=== PATIENT | male | born 1980 | race Caucasian/White ===

== ENCOUNTER 2020-04-09 11:44 | Emergency (ER) | payer OTHER, SELFPAY ==
[2020-04-09 11:49] VITALS: BP 108/91; PULSE 80; RESP 20; TEMP 36.9; O2SAT 100
--- NOTE | 2020-04-09 11:49 | ED.GENADULT ---
HPI - General Adult General Chief complaint: Back Pain/Injury Stated complaint: back pain going to right arm Time Seen by Provider: 04/09/20 11:49 Source: patient Mode of arrival: ambulatory Limitations: no limitations History of Present Illness HPI narrative: 39-year-old male patient presents to the [facility] with complaints of right upper back pain that radiates to the shoulder. Patient states he has had this ongoing for the last couple of years but is now has never seen a primary doctor for this. Patient states that this time it started about 3 days ago and is gotten increasingly worse with some numbness and tingling down the right arm. Patient denies any injury that he can remember. Patient denies any numbness or tingling to the lower extremities. Denies any recent falls. Denies any loss of control of bowel or bladder. Patient states he did take some Advil for it yesterday but denies take anything for today. Related Data Allergies Allergy/AdvReac Type Severity Reaction Status Date / Time No Known Allergies Allergy Mild Unverified 01/28/14 15:27 Review of Systems Review of Systems: Narrative: CONSTITUTIONAL: Denies fever, chills, or sweats. EYES: Denies visual changes, redness, or discharge. ENT: Denies rhinorrhea, congestion, sore throat, or otalgia. CARDIOVASCULAR: Denies chest pain, palpitations, or edema. RESPIRATORY: Denies cough or dyspnea. GASTROINTESTINAL: Denies abdominal pain, nausea, vomiting, or diarrhea. GENITOURINARY: Denies dysuria or hematuria. SKIN: Denies rash or itching. MUSCULOSKELETAL: Positive upper right back pain with radiation down to right arm, denies joint pain, or myalgia. NEUROLOGIC: Denies headache, numbness, or weakness. PSYCHIATRIC: Denies anxiety or depression. PMFSH Comments At the time of my signature I agree with nursing past medical history, surgical, social, and family history. There is no relevant family history pertinent to the presenting complaint. Exam Narrative: Exam Narrative: GENERAL: Well-appearing, well-nourished, and in no acute distress. HEAD: Normocephalic, atraumatic. EYES: PERRLA and EOMI. ENT: Nares clear, no rhinorrhea or epistaxis. Mucous membranes moist. NECK: Supple. No lymphadenopathy CHEST: Clear to auscultation. No respiratory distress. HEART: Regular rate and rhythm. No murmur heard. Normal peripheral pulses. ABDOMEN: Soft, nontender, nondistended, normal active bowel sounds. EXTREMITIES: Normal range of motion. No edema. BACK: Patient is able to ambulated without assistance. Pt is seated/lying on the stretcher in no obvouis distress. No surface trauma noted. No muscle tenderness to Palpation. No spasm or mass. No step-offs or deformity noted to the cervical, thoracic or lumbar spine to firm Palpation at the midline. No CVA tenderness to percussion. No saddle anesthesia. ROM: able to stand erect. Normal flexion, extension, Lateral bending and rotation without limitation or complaint of pain. Patient does have tenderness around the right scapula on palpation and does increase when turning the head to the left. SKIN: Warm, dry, no rash. NEURO: Alert and oriented x4, GCS 15. Cranial nerves II through XII grossly intact. No focal neurological deficits. Normal muscle strength and tone. Normal deep tendon reflexes. Negative Babinski, normal finger to nose coordination he had normal heel to valencia glide. Speech is clear. Normal gait. Negative Romberg and no pronator drift Course Vital Signs Vital signs: Vital Signs Temperature 36.9 C 04/09/20 11:49 Pulse Rate 80 04/09/20 11:49 Respiratory Rate 04/09/20 11:49 Blood Pressure 108/91 H 04/09/20 11:49 Pulse Oximetry 100 04/09/20 11:49 Temperature 36.9 C 04/09/20 11:49 Pulse Rate 80 04/09/20 11:49 Respiratory Rate 04/09/20 11:49 Blood Pressure 108/91 H 04/09/20 11:49 Pulse Oximetry 100 04/09/20 11:49 Vital signs reviewed. Medical Decision Making Differential Diagnosis Differenti
== END 2020-04-09 12:16 | disposition home or self-care (01) ==
PROVIDERS: Emergency Provider Nurse Practitioner Family
DX: M54.10 Radiculopathy, site unspecified (principal)
CPT/HCPCS: 99203; G0463